=== PATIENT | male | born 1965 | race Caucasian/White ===

== ENCOUNTER 2018-05-09 23:14 | Emergency (ER) | payer BC, SELFPAY ==
[2018-05-09 23:15] VITALS: BP 116/67; PULSE 83; RESP 15; TEMP 36.4; BMI 27.1
--- NOTE | 2018-05-09 23:30 | EKG12_ITS ---
Test Reason : CP Blood Pressure : / mmHG Vent. Rate : 096 BPM Atrial Rate : 096 BPM P-R Int : 150 ms QRS Dur : 086 ms QT Int : 370 ms P-R-T Axes : 062 041 049 degrees QTc Int : 467 ms Normal sinus rhythm Normal ECG Confirmed by CRYSTAL BAI, KEIRA ([id number]), assistant editor EARL LEMA ([id number]) on 05/12/2018 1:43:55 PM Referred By: ETIENNE Confirmed By:KEIRA ROJAS MD
[2018-05-09 23:33] VITALS: O2SAT 97
--- NOTE | 2018-05-09 23:33 | RAD_ITS ---
STUDY: X-RAY CHEST REASON FOR EXAM: Male, 52 years old. Chest pain TECHNIQUE: 1 view COMPARISON: None. FINDINGS: The lungs are clear and expanded. There is no demonstrated pleural abnormality. Normal size heart. Normal mediastinum and stella. Normal visualized pulmonary arteries. Normal visualized aortic arch and descending thoracic aorta. Normal visualized thoracic spine. Normal visualized ribs, clavicles, and shoulders. There is no demonstrated abnormality of the visualized soft tissue structures of the upper abdomen. RAD/Chest 1 View (Portable) IMPRESSION: Normal x-ray examination of the chest. No acute findings in the lungs Electronically Signed: Arian Mack MD at 1:10 EDT Tel , Service support ,
--- NOTE | 2018-05-09 23:44 | ED.DCSUM_ITS ---
History of Present Illness Chief Complaint: Chest Pain Narrative: Presents with chest discomfort on and off for the last 6 months. He states that it can come and go and lasts for minutes to hours to days. It is left-sided. It feels like a pressure type discomfort. It is not exertional related. He is taken nothing for over the last 6 months. His significant other did get him to take an aspirin this evening. Current severity is mild. It is almost completely gone. Denies any shortness of breath. Denies any cardiac risk factors. Denies any pulmonary embolism risk factors. Denies any dissection risk factors. No tenderness in his legs. No recent trips. He is never had a heart catheter stress test. Denies any associated symptoms. Past Medical History - Allergies and Home Meds Allergies/Adverse Reactions: Allergies No Known Allergies Allergy (Verified 05/09/18 23:20) Primary Care Physician: José Luis Meadows III, MD [Primary Care Provider] - Prior records reviewed: Yes Past Medical History: None Surgical History: no surgical history Lives: Spouse/ Significant Other Smoking Status: Former smoker Alcohol: None Drugs: None Review of Systems General: Denies: Chills, Fever, Sweats Eyes: Denies: Visual changes - bilaterally, Diplopia ENT: Denies: Rhinorrhea, Sore throat Cardiovascular: Reports: Chest pain. Denies: Palpitations Respiratory: Denies: Dyspnea, Cough, Dyspnea on exertion Gastrointestinal: Denies: Abdominal pain, Nausea, Vomiting, Diarrhea, Melena, Hematochezia Genitourinary: Denies: Dysuria, Hematuria, Frequency Musculoskeletal: Denies: Back pain, Extremity Pain Skin: Denies: Rash, Wounds Neurological: Denies: Headache, Weakness, Numbness Physical Exam Vital Signs/Narrative: Vital Signs Temp Pulse Resp BP Pulse Ox 05/09/18 23:33 97 05/09/18 23:15 97.5 F L 83 15 116/67 General: Well nourished, Well developed, No Acute Distress Head: Normocephalic, Atraumatic Eyes: Perrl, EOMI ENT: Moist mucous membranes, No rhinorrhea Neck: Supple, Nontender Cardiovascular: Regular rate, Regular rhythm, No murmurs Respiratory: No distress, CTA bilaterally, Chest nontender Abdomen: Soft, Nontender, Nondistended, Normal bowel sounds Back: Nontender, Normal Inspection Extremities: Nontender, No edema Skin: Normal color, No rash Neurological: Alert, Oriented x3, Cranial nerves II-XII grossly intact, Normal Strength, Normal Sensation Psychological: Normal affect, Normal Mood Diagnostic/Tx/Re-eval 05/09/18 23:33 Chest 1 View (Portable) [RAD] Stat Laboratory Results 05/09/18 05/09/18 05/09/18 23:31 23:31 23:31 WBC 10.1 RBC 4.44 L Hgb 14.1 Hct 40.0 MCV 90.1 MCH 31.8 MCHC 35.3 RDW 12.5 RDW Differential 40.9 Plt Count 190 MPV 10.8 Immature Gran % (Auto) 0.100 Neut % (Auto) 33.8 L Lymph % (Auto) 53.8 H [place] % (Auto) 7.0 Eos % (Auto) 4.1 Baso % (Auto) 1.2 H Absolute Neuts (auto) 3.4 Absolute Lymphs (auto) 5.42 H Total Counted Not Reportable Differential Comment SCANNED Reactive Lymphocytes 2+ PT 13.6 INR 1.1 Sodium 141 Potassium 3.7 Chloride 110 H Carbon Dioxide 23.0 Anion Gap 8 BUN 14 Creatinine 0.76 Estim Creat Clear Calc 118.34 Est GFR (MDRD) Af Amer 137 Est GFR (MDRD) Non-Af 114 BUN/Creatinine Ratio 18.4 Glucose 128 H Calcium 8.5 Troponin I < 0.015 - Medical Decision Making KG shows sinus at a rate of 96 without acute ischemia or arrhythmia. Chest x- ray lab work unremarkable including troponin. Patient is resting comfortably on reevaluation. His heart score is 1. I have a low suspicion for acute coronary syndrome PE or dissection. I feel he can follow-up. This could be noncardiac related. ED Disposition - Plan for ED Patient: Disposition: [facility] Diagnosis: Chest pain Instructions: ED Chest Pain NonCardiac Referrals: José Luis Meadows III, MD [Primary Care Provider] -
[2018-05-09 23:46] LABS: Absolute Lymphocyte Count 5.42 X10^3/ul (0.83-4.51); Absolute Neutrophil Count 3.4 X10^3/uL (2.0-7.7); Basophil# 0.12 X10^3/uL; Basophil% 1.2 % (0-1); Eosinophil# 0.41 X10^3/uL; Eosinophils% 4.1 % (0-5); Hemoglobin 14.1 g/dl (13.0-16.5); Lymphocyte # 5.42 X10^3/ul (4.0); Lymphocyte % 53.8 % (19-41); Mean Corp Hgb Conc 35.3 g/gl (32-36); Mean Corpuscular Hgb 31.8 pg (27.0-32.0); Mean Corpuscular Volume 90.1 fL (80-94); Mean Platelet Vol. 10.8 fl (6.2-12.0); Neutrophil # 3.41 X10^3/uL (2.7-7.7); Neutrophil % 33.8 % (47-70); Platelet Count 190 K/mm3 (150-450); RBC Distribution Width CV 12.5 % (11.6-14.6); RBC Distribution Width SD 40.9 fl (35.1-43.9); Red Blood Count 4.44 M/mm3 (4.6-6.2); White Blood Count 10.1 K/mm3 (4.4-11.0)
[2018-05-09 23:52] LABS: International Normalized Ratio 1.1; Prothrombin Time (Protime)PT. 13.6 SECONDS (11.7-14.9)
[2018-05-09 23:55] LABS: Differential Indicated SCAN CRITERIA MET; POSITIVE COUNT NO; POSITIVE DIFFERENTIAL YES; POSITIVE MORPHOLOGY YES
[2018-05-10 00:03] VITALS: O2SAT 97
[2018-05-10 00:03] LABS: Anion Gap 8 (5-15); BUN 14 mg/dL (7-18); BUN/Creat Ratio 18.4 RATIO (10-20); Calcium,Total 8.5 mg/dL (8.5-10.1); Chloride 110 mmol/L (98-107); Creatinine, Serum 0.76 mg/dL (0.70-1.30); EST Glomerular Filtration Rate 114 mL/min (>60); Est Glom Filt Rate - Afr Amer 137 mL/min (>60); Estimated Creatinine Clearance 118.34 ml/min; Glucose 128 mg/dL (74-106); Potassium 3.7 mmol/L (3.5-5.1); Sodium Level 141 mmol/L (136-145)
[2018-05-10 00:22] LABS: Differential Comment SCANNED; Reactive Lymphocyte 2+
[2018-05-10 00:47] VITALS: BP 113/73; PULSE 83; RESP 16; O2SAT 95
[2018-05-10 01:33] VITALS: BP 106/75; PULSE 79; RESP 15; RESP 16; O2SAT 96
== END 2018-05-10 01:34 | disposition home or self-care (01) ==
PROVIDERS: Emergency Provider Emergency Medicine; Family Provider Family Medicine; PCP Family Medicine
DX: R07.9 Chest pain, unspecified (principal); Z87.891 Personal history of nicotine dependence
CPT/HCPCS: 71045; 80048; 84484; 85025; 85610; 93005; 99285

== ENCOUNTER → 2019-10-12 | Outpatient (CLI) | payer BC, SELFPAY | END | disposition home or self-care (01) | LOC: LABSPEC 10-14 12:47 | PROVIDERS: PCP Family Medicine; Referring Provider Family Medicine; Visit Provider Family Medicine | DX: Z20.828 Contact with and (suspected) exposure to other viral communicable diseases (principal) | CPT/HCPCS: 87635; 94799; U0003 ==